=== PATIENT | female | born 1950 | race Asian ===

== ENCOUNTER 2019-02-14 08:53 | Day surgery (SDC) | payer OTHER ==
[2019-02-13 15:49] VITALS: BMI 34.6
[2019-02-14 11:17] VITALS: TEMP 98.6
[2019-02-14 11:38] VITALS: BP 114/66; PULSE 69
--- NOTE | 2019-02-15 13:23 | PATH ---
Surgical Pathology Report Patient Name: JOHNATHAN VALENZUELA [facility]. Rec. #: [id number] /Age/Gender: 1950 (Age: 68) / F Account: [id number] Location: [facility]-ENDOSCOPY Taken: 02/14/2019 Received: 02/14/2019 Reported: 02/15/2019 Physicians: Brody Hayes M.D. Specimen(s) Received A: DUODENUM, SECOND PORTION AND DUODENAL BULB B: ANTRUM C: SIGMOID COLON POLYP Clinical History Rectal bleeding, family history of colon cancer, anemia Postoperative diagnosis: Antral gastritis, colon polyp Final Diagnosis A. DUODENUM, SECOND PORTION AND DUODENAL BULB, BIOPSY: DUODENAL MUCOSA WITHOUT SIGNIFICANT PATHOLOGIC FINDINGS. B. STOMACH, ANTRUM, BIOPSY: GASTRIC ANTRAL MUCOSA WITH MILD CHRONIC GASTRITIS. IMMUNOHISTOCHEMICAL STAIN FOR H. PYLORI IS NEGATIVE. C. SIGMOID COLON, POLYP, BIOPSY: TUBULAR ADENOMA. Electronically Signed Trish Gatica M.D. Gross Description A. Received in formalin, labeled "second portion and bulb of duodenum" are 4 blankenship, irregular portions of soft tissue ranging from 0.2-0.3 cm. in greatest dimension. The specimens are submitted in toto in one cassette. B. Received in formalin, labeled "antrum biopsy" are 2 blankenship, irregular portions of soft tissue averaging 0.5 cm. in greatest dimension. The specimens are submitted in toto in one cassette. C. Received in formalin, labeled "sigmoid colon polyp biopsy" is a 0.3 cm in greatest dimension blankenship, irregular portion of soft tissue. The specimen is submitted in toto in one cassette. saudi/02/14/2019
== END 2019-02-14 12:01 | disposition home or self-care (01) ==
LOC: JASU-ENDO 08:53
PROVIDERS: ATTEND Internal Medicine Gastroenterology
PROC: 0DB98ZX Excision of Duodenum, Via Natural or Artificial Opening Endoscopic, Diagnostic (ICD-10-PCS; 2019-02-14)
PROC: 0DB68ZX Excision of Stomach, Via Natural or Artificial Opening Endoscopic, Diagnostic (ICD-10-PCS; 2019-02-14)
PROC: 0DBN8ZX Excision of Sigmoid Colon, Via Natural or Artificial Opening Endoscopic, Diagnostic (ICD-10-PCS; principal; 2019-02-14 09:30)
DX: Z12.11 Encounter for screening for malignant neoplasm of colon (principal); Z80.0 Family history of malignant neoplasm of digestive organs; D64.9 Anemia, unspecified; D12.5 Benign neoplasm of sigmoid colon; K25.9 Gastric ulcer, unspecified as acute or chronic, without hemorrhage or perforation

== ENCOUNTER 2022-05-05 05:36 | Day surgery (SDC) | payer OTHER ==
[2022-04-29 16:28] VITALS: BMI 32.8
[~2022-05-05 05:36] MED LIST: ACETAMINOPHEN 325 MG TABLET (FP) PO PRN; EPINEPHrine/PF 1 MG/1 ML (1:1,000) AMPULE SQ ONE
[2022-05-05] MEDS ORDERED: LIDOCAINE HCL/PF 2% SDV 5ML VIAL ONE ×2 (07:26→09:11)
[2022-05-05] MEDS ORDERED: BUPIVACAINE HCL/PF 0.75% 10 ML VIAL ONE (07:26)
[2022-05-05] MEDS ORDERED: EPINEPHrine/PF 1 MG/1 ML (1:1,000) AMPULE ONE (07:26)
[2022-05-05] MEDS ORDERED: LIDOCAINE HCL/PF 1% SDV 5ML VIAL ONE (07:27)
[2022-05-05] MEDS ORDERED: POVIDONE-IODINE 5% OPHTHALMIC PREP 30 ML SOLUTION ONE (07:27)
[2022-05-05] MEDS ORDERED: PHENYLEPHRINE 2.5% OPTHALMIC DROP 2ML BOTTLE ONE (07:31)
[2022-05-05] MEDS ORDERED: OFLOXACIN 0.3% OPHTHALMIC SOLUTION 5 ML BOTTLE ONE (07:32)
[2022-05-05] MEDS ORDERED: KETOROLAC TROMETHAMINE 0.5% EYE DROP 1 DROP DROPS ONE (07:32)
[2022-05-05] MEDS ORDERED: CYCLOPENTOLATE HCL 1% OPHTH SOLN 2 ML BOTTLE ONE (07:32)
[2022-05-05] MEDS ORDERED: TROPICAMIDE 1% OPHTH SOLN 15 ML BOTTLE ONE (07:32)
[2022-05-05] MEDS: PHENYLEPHRINE 2.5% OPHTH SOLN 15 ML BOTTLE OP SCH ×3 (07:40→08:00)
[2022-05-05] MEDS: KETOROLAC TROMETHAMINE 0.5% EYE DROP 1 DROP DROPS OP SCH ×3 (07:40→08:00)
[2022-05-05] MEDS: OFLOXACIN 0.3% OPHTHALMIC SOLUTION 5 ML BOTTLE OP SCH ×3 (07:40→08:00)
[2022-05-05] MEDS: CYCLOPENTOLATE HCL 1% OPHTH SOLN 2 ML BOTTLE OP SCH ×3 (07:40→08:00)
[2022-05-05] MEDS: TROPICAMIDE 1% OPHTH SOLN 15 ML BOTTLE OP SCH ×3 (07:40→08:00)
[2022-05-05] MEDS ORDERED: MIDAZOLAM HCL 2 MG/2 ML SINGLE DOSE VIAL ONE (09:10)
[2022-05-05] MEDS ORDERED: PROPOFOL 20 ML ONE (09:11)
[2022-05-05] MEDS ORDERED: BUPIVACAINE HCL/PF 0.75% 10 ML VIAL NR ONE (09:26)
[2022-05-05] MEDS ORDERED: LIDOCAINE HCL/PF 2% SDV 5ML VIAL INF ONE (09:26)
[2022-05-05] MEDS ORDERED: POVIDONE-IODINE 5% OPHTHALMIC PREP 30 ML SOLUTION OS ONE (09:29)
[2022-05-05] MEDS ORDERED: BSS (NA/CA/MG/K) BALANCED SALT SOLUTION OPHTH SOLN 15 ML BOTTLE OS ONE (09:33)
[2022-05-05] MEDS ORDERED: LIDOCAINE HCL 1% PRESERVATIVE FREE - 30ML VIAL IO ONE (09:34)
[2022-05-05] MEDS ORDERED: CHONDROITIN SU A/HYALUR SOD 1 KIT IO ONE ×2 (09:34)
[2022-05-05] MEDS ORDERED: EPINEPHrine/PF 1 MG/1 ML (1:1,000) AMPULE SQ ONE (09:41)
[2022-05-05 10:20] VITALS: RESP 20
[2022-05-05 10:42] VITALS: BP 129/75; PULSE 60; TEMP 97.5
== END 2022-05-05 10:51 | disposition home or self-care (01) ==
LOC: JASU-SURG 05:36
PROVIDERS: ATTEND Ophthalmology
PROC: 08RK3JZ Replacement of Left Lens with Synthetic Substitute, Percutaneous Approach (ICD-10-PCS; principal; 2022-05-05 09:00)
DX: H26.9 Unspecified cataract (principal)
CPT/HCPCS: 82962; V2632

== ENCOUNTER 2022-05-19 04:15 | Day surgery (SDC) | payer OTHER ==
[2022-05-18 08:40] VITALS: BMI 35.0
[~2022-05-19 04:15] MED LIST changes: -EPINEPHrine/PF 1 MG/1 ML (1:1,000) AMPULE SQ ONE
[2022-05-19] MEDS ORDERED: BUPIVACAINE HCL/PF 0.75% 10 ML VIAL ONE (07:46)
[2022-05-19] MEDS ORDERED: LIDOCAINE HCL/PF 2% SDV 5ML VIAL ONE (07:46)
[2022-05-19] MEDS ORDERED: LIDOCAINE HCL/PF 1% SDV 5ML VIAL ONE (07:47)
[2022-05-19] MEDS ORDERED: POVIDONE-IODINE 5% OPHTHALMIC PREP 30 ML SOLUTION ONE (07:47)
[2022-05-19] MEDS ORDERED: PHENYLEPHRINE 2.5% OPTHALMIC DROP 2ML BOTTLE ONE (08:59)
[2022-05-19] MEDS ORDERED: OFLOXACIN 0.3% OPHTHALMIC SOLUTION 5 ML BOTTLE ONE (09:00)
[2022-05-19] MEDS: TROPICAMIDE 1% OPHTH SOLN 15 ML BOTTLE OP SCH ×2 (09:00→09:10)
[2022-05-19] MEDS: KETOROLAC TROMETHAMINE 0.5% EYE DROP 1 DROP DROPS OP SCH ×2 (09:00→09:10)
[2022-05-19] MEDS ORDERED: TROPICAMIDE 1% OPHTH SOLN 15 ML BOTTLE ONE (09:00)
[2022-05-19] MEDS ORDERED: KETOROLAC TROMETHAMINE 0.5% EYE DROP 1 DROP DROPS ONE (09:00)
[2022-05-19] MEDS ORDERED: CYCLOPENTOLATE HCL 1% OPHTH SOLN 2 ML BOTTLE ONE (09:00)
[2022-05-19] MEDS: OFLOXACIN 0.3% OPHTHALMIC SOLUTION 5 ML BOTTLE OP SCH ×2 (09:00→09:10)
[2022-05-19] MEDS: CYCLOPENTOLATE HCL 1% OPHTH SOLN 2 ML BOTTLE OP SCH ×2 (09:00→09:10)
[2022-05-19] MEDS: PHENYLEPHRINE 2.5% OPHTH SOLN 15 ML BOTTLE OP SCH ×2 (09:00→09:10)
[2022-05-19] MEDS ORDERED: LIDOCAINE HCL 2% JELLY (5 ML/TUBE) ONE (11:42)
[2022-05-19] MEDS ORDERED: MIDAZOLAM HCL 2 MG/2 ML SINGLE DOSE VIAL ONE (11:49)
[2022-05-19] MEDS ORDERED: PROPOFOL 20 ML ONE (11:49)
[2022-05-19] MEDS ORDERED: LIDOCAINE HCL/PF 2% SDV 5ML VIAL INF ONE (12:02)
[2022-05-19] MEDS ORDERED: BUPIVACAINE HCL/PF 0.75% 10 ML VIAL NR ONE (12:02)
[2022-05-19] MEDS ORDERED: POVIDONE-IODINE 5% OPHTHALMIC PREP 30 ML SOLUTION OD ONE (12:05)
[2022-05-19] MEDS ORDERED: BSS (NA/CA/MG/K) BALANCED SALT SOLUTION OPHTH SOLN 15 ML BOTTLE OD ONE (12:08)
[2022-05-19] MEDS ORDERED: CHONDROITIN SU A/HYALUR SOD 1 KIT IO ONE (12:09)
[2022-05-19] MEDS ORDERED: LIDOCAINE HCL 1% PRESERVATIVE FREE - 30ML VIAL IO ONE (12:09)
[2022-05-19] MEDS ORDERED: TRYPAN BLUE 0.5 ML DISP.SYRIN IO ONE (12:09)
[2022-05-19] MEDS ORDERED: EPINEPHrine/PF 1 MG/1 ML (1:1,000) AMPULE SQ ONE (12:16)
[2022-05-19 12:55] VITALS: BP 143/73; PULSE 61; RESP 16; TEMP 98.7
== END 2022-05-19 13:20 | disposition home or self-care (01) ==
LOC: JASU-SURG 04:15
PROVIDERS: ATTEND Ophthalmology
PROC: 08RJ3JZ Replacement of Right Lens with Synthetic Substitute, Percutaneous Approach (ICD-10-PCS; principal; 2022-05-19 11:00)
DX: H26.9 Unspecified cataract (principal)
CPT/HCPCS: 66984; V2632; 82962